=== PATIENT | female | born 1960 | race African-American/Black ===

== ENCOUNTER → 2016-06-07 | Outpatient (CLI) | payer MEDICARE, OTHER | LOC: WI 08:16 | PROVIDERS: ATTEND Internal Medicine | DX: M81.0 Age-related osteoporosis without current pathological fracture (principal) | CPT/HCPCS: 77080 ==

== ENCOUNTER → 2016-11-30 | Outpatient (CLI) | payer MEDICARE, OTHER ==
--- NOTE | 2016-11-30 12:51 | XCELERA REPORT ---
[address] [address] Lower Extremity Venous Evaluation Name: GALINDO SAMUEL Age: 56 yrs Gender: Female : 1960 Patient Status: Outpatient Patient Location: Study Date: 11/30/2016 09:02 AM Procedure: Color flow and duplex imaging of the veins of the left lower extremity as well as the right Common Femoral vein. Reason For Study: PAIN Ordering Physician: SON HUDSON Performed By: Claudia Joshi Right Sided Venous Evaluation The right common femoral vein is fully compressible. Spontaneous and phasic flow is present in the right common femoral vein. Left Sided Venous Evaluation Normal vessel filling wall to wall, compression and augmentation as well as Colour flow down to the infrageniculate veins. Interpretation Summary No duplex evidence of DVT or obstruction in the left lower extremity nor in the right Common Femoral vein. : SON HUDSON > Nazario Lofton
== END ==
LOC: SP 08:56
PROVIDERS: ATTEND Internal Medicine
DX: M79.89 Other specified soft tissue disorders (principal); M79.609 Pain in unspecified limb
CPT/HCPCS: 93971

== ENCOUNTER 2017-11-03 19:52 | Emergency (ER) | payer OTHER, MEDICARE ==
[2017-11-03] MEDS ORDERED: KETOROLAC TROMETHAMINE 60 MG/2 ML SDV IM ONE (20:13)
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
[2017-11-03] MEDS ORDERED: KETOROLAC TROMETHAMINE INJ/PF 30 MG/1 ML SDV IV ONE (20:36)
[2017-11-03 20:43] LABS: ABSOLUTE BASOPHILS # (AUTO) 0.1 10^3/uL (0.0-0.2); ABSOLUTE EOSINOPHILS # (AUTO) 0.1 10^3/uL (0.0-0.6); ABSOLUTE LYMPHOCYTES (AUTO) 1.6 10^3/uL (0.5-4.7); ABSOLUTE MONOCYTES (AUTO) 0.6 10^3/uL (0.1-1.4); ABSOLUTE NEUT (AUTO) 8.1 10^3/uL (1.7-8.2); BASOPHILS % (AUTO) 0.5 % (0-2); EOSINOPHILS % (AUTO) 0.7 % (0-6); HEMATOCRIT 38.3 % (36.0-47.0); HEMOGLOBIN 13.2 g/dL (12.0-15.5); LYMPHOCYTES % (AUTO) 15.3 % (13-45); MEAN CORPUSCULAR HEMOGLOBIN 30.5 pg (27.0-33.4); MEAN CORPUSCULAR HGB CONC 34.4 g/dL (32.0-36.0); MEAN CORPUSCULAR VOLUME 89 fl (80-97); MONOCYTES % (AUTO) 5.5 % (3-13); PLATELET COUNT 300 10^3/uL (150-450); RED BLOOD COUNT 4.31 10^6/uL (3.72-5.28); RED CELL DISTRIBUTION WIDTH 13.9 % (11.5-14.0); TOTAL CELLS COUNTED % (AUTO) 100 %; WHITE BLOOD COUNT 10.5 10^3/uL (4.0-10.5)
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
[2017-11-03 21:48] LABS: ALANINE AMINOTRANSFERASE 28 U/L (9-52); ALBUMIN 4.9 g/dL (3.5-5.0); ALKALINE PHOSPHATASE 97 U/L (38-126); ANION GAP 16 (5-19); ASPARTATE AMINO TRANSFERASE 20 U/L (14-36); BILIRUBIN,DIRECT 0.2 mg/dL (0.0-0.4); BLOOD UREA NITROGEN 12 mg/dL (7-20); CALCIUM 10.9 mg/dL (8.4-10.2); CARBON DIOXIDE 25 mmol/L (22-30); CHLORIDE 104 mmol/L (98-107); GLUCOSE 211 mg/dL (75-110); POTASSIUM 3.4 mmol/L (3.6-5.0); SODIUM 144.9 mmol/L (137-145); TOTAL PROTEIN 8.4 g/dL (6.3-8.2)
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
[2017-11-03] MEDS ORDERED: HYDROCODONE/ACETAMINOPHEN 5-325 MG (6 TAB/ER DISP) PO PRN (23:44)
[2017-11-03] MEDS ORDERED: METHOCARBAMOL 500 MG TABLET PO ONE (23:44)
[2017-11-04 03:51] VITALS: BP 122/68
== END 2017-11-04 00:20 | disposition home or self-care (01) ==
LOC: ER 19:52
DX: M54.2 Cervicalgia (principal); R51 Headache; M54.6 Pain in thoracic spine; R07.9 Chest pain, unspecified; V87.7XXA Person injured in collision between other specified motor vehicles (traffic), initial encounter; I10 Essential (primary) hypertension; I25.10 Atherosclerotic heart disease of native coronary artery without angina pectoris; E11.9 Type 2 diabetes mellitus without complications
CPT/HCPCS: 99284; 96374; 36415; 85025; 80053; 70450; 71260; 72125; 74177; J1885

== ENCOUNTER → 2018-06-07 | Outpatient (CLI) | payer MEDICARE, OTHER ==
--- NOTE | 2018-06-07 10:51 | WOMENS IMAGING REPORT ---
EXAM DESCRIPTION: BONE DENSITY HIP/SPINE COMPLETED DATE/TIME: 06/07/2018 10:30 am REASON FOR STUDY: M81.0 AGE-RELATED OSTEOPOROSIS W/O CURRENT PATHOLOGICAL FRACTURE M81.0 AGE-RELATE D OSTEOPOROSIS W/O CURRENT PATHOLOGICAL FRAC COMPARISON: 06/07/2016 TECHNIQUE: Dual-Energy X-ray Absorptiometry (DEXA) of the AP Spine and Hip. LIMITATIONS: None. FINDINGS: LUMBAR SPINE: The bone mineral density (BMD) measured from L1-L4 in the AP projection correlates with a T-score of -1.4, previously -1.7, which is osteopenia as defined by the World Health Organization. HIP: The bone mineral density (BMD) measured in the left hip correlates with a T-score of -2.6, unchanged, which is osteoporosis as defined by the World Health Organization. IMPRESSION: 1. LUMBAR SPINE: OSTEOPENIA. 2. HIP: OSTEOPOROSIS. COMMENT: The World Health Organization defines low BMD as follows: T-score: Normal: Greater than -1.0 Osteopenia: Between -1.0 and -2.5 Osteoporosis: Less than -2.5 without fractures Established osteoporosis: Less than -2.5 with fractures In general, you may wish to consider: Diagnosis Treatment Follow-up DEXA Normal BMD Prevention 2-3 years Osteopenia Prevention/Therapy 1-2 years Osteoporosis Therapy Yearly TECHNICAL DOCUMENTATION: JOB ID: [id number]- All Rights Reserved Reading location - IP/workstation name: [email or web address]
== END ==
LOC: WI 09:56
PROVIDERS: ATTEND Internal Medicine
DX: M81.0 Age-related osteoporosis without current pathological fracture (principal)
CPT/HCPCS: 77080

== ENCOUNTER 2018-11-27 12:19 | Emergency (ER) | payer MEDICARE, OTHER ==
--- NOTE | 2018-11-27 12:56 | ER Document Report ---
ED Medical Screen (RME) - General Chief Complaint: Skin Problem Stated Complaint: POSSIBLE ABCESS ON BACK OF NECK Time Seen by Provider: 11/27/18 12:52 Primary Care Provider: SON HUDSON MD [Primary Care Provider] - Follow up as needed Mode of Arrival: Ambulatory Information source: Patient Notes: 58-year-old female presents emergency department with complaints of swelling to the back of her neck. Patient thought it was an abscess. Reports started swelling after she came in from the outside. No abscess appreciated. Patient is a history of breast cancer survivor with double mastectomy. No other symptoms such as fever vomiting diarrhea. I have greeted and performed a rapid initial assessment of this patient. A comprehensive ED assessment and evaluation of the patient, analysis of test results and completion of the medical decision making process will be conducted by additional ED providers. Dictation of this chart was performed using voice recognition software; therefore, there may be some unintended grammatical errors. TRAVEL OUTSIDE OF THE [place] IN LAST 30 DAYS: No - Related Data Allergies/Adverse Reactions: No Known Allergies Allergy (Verified 11/27/18 12:51) Past Medical History - Social History Chew tobacco use (# tins/day): No Frequency of alcohol use: None Drug Abuse: None - Past Medical History Cardiac Medical History: Reports: Hx Hypercholesterolemia, Hx Hypertension Denies: Hx Atrial Fibrillation, Hx Congestive Heart Failure, Hx Coronary Artery Disease, Hx Heart Attack, Hx Heart Murmur Pulmonary Medical History: Denies: Hx Asthma, Hx Bronchitis, Hx COPD, Hx Pneumonia, Hx Respiratory Failure, Hx Sleep Apnea, Hx Tuberculosis Neurological Medical History: Denies: Hx Cerebrovascular Accident, Hx Seizures, Hx Parkinson's Disease Endocrine Medical History: Reports: Hx Diabetes Mellitus Type 2 - Borderline Renal/ Medical History: Denies: Hx End Stage Renal Disease, Hx Kidney Stones, Hx Peritoneal Dialysis Malignancy Medical History: Reports: Hx Breast Cancer - RIGHT mastectomy 12/01/10 GI Medical History: Denies: Hx Gastroesophageal Reflux Disease, Hx Hiatal Hernia, Hx Pancreatitis, Hx Ulcer Musculoskeltal Medical History: Denies Hx Arthritis, Denies Hx Systemic Lupus Erythematosus Psychiatric Medical History: Denies: Hx Bipolar Disorder, Hx Depression, Hx Schizophrenia Infectious Medical History: Past Surgical History: Reports: Hx Breast Surgery, Hx Mastectomy - bilat, Hx Tonsillectomy, Hx Tubal Ligation. Denies: Hx Appendectomy, Hx Bowel Surgery, Hx Section, Hx Cholecystectomy, Hx Hysterectomy - Immunizations Hx Diphtheria, Pertussis, Tetanus Vaccination: Yes Physical Exam - Vital signs Vitals: Temp Pulse Resp BP Pulse Ox 97.7 F 62 16 164/81 H 98 11/27/18 12:43 11/27/18 12:43 11/27/18 12:43 11/27/18 12:43 11/27/18 12:43 Course - Vital Signs Vital signs: Temp Pulse Resp BP Pulse Ox 97.7 F 62 16 164/81 H 98 11/27/18 12:43 11/27/18 12:43 11/27/18 12:43 11/27/18 12:43 11/27/18 12:43 Doctor's Discharge - Discharge Referrals: SON HUDSON MD [Primary Care Provider] - Follow up as needed
--- NOTE | 2018-11-27 14:19 | RADIOLOGY REPORT (SQ) ---
EXAM DESCRIPTION: U/S THYROID/SFT TISS HD NECK COMPLETED DATE/TIME: 11/27/2018 1:57 pm REASON FOR STUDY: Swelling back of neck COMPARISON: None. TECHNIQUE: Dynamic and static keene-scale images acquired of the palpable area in the left posterior aspect of the neck; images of the contralateral side were also acquired for comparison. Selected filemon tional color/power Doppler images recorded. All images stored to PACS. LIMITATIONS: None. FINDINGS: For the travel manager no the patient has been complaining of swelling to the back of the nec k for 1 day. The palpable area of abnormality in the posterolateral aspect of the neck, on the left side, was evaluated with ultrasound and no discrete abscess, mass or enlarged lymph node was identifi ed. IMPRESSION: No mass, abscess or enlarged lymph node at the site of the palpable abnormality. TECHNICAL DOCUMENTATION: JOB ID: [id number] [employer] [place]- All Rights Reserved Reading location - IP/workstation name: [email or web address]
--- NOTE | 2018-11-27 14:32 | ER Document Report ---
HPI - HPI Patient complains to provider of: lump on back of neck Time Seen by Provider: 11/27/18 12:52 Pain Level: 3 Context: 58-year-old female with history of breast cancer status post double mastectomy presents to the emergency department with chief complaint of a swollen area on the back of her neck on the left side. She said it happened yesterday when she was working outside and felt some pain in realized that there was swelling. She is unclear if this is a swollen lymph node and she is concerned because of her history of cancer. She denies any fevers or night sweats, denies any nausea or vomiting, denies any acute weakness, denies any neck stiffness, denies any chest pain or shortness of breath. - REPRODUCTIVE Reproductive: DENIES: : Past Medical History - General Information source: Patient - Social History Smoking Status: Never Smoker Chew tobacco use (# tins/day): No Frequency of alcohol use: None Drug Abuse: None Family History: Reviewed & Not Pertinent Patient has suicidal ideation: No Patient has homicidal ideation: No - Past Medical History Cardiac Medical History: Reports: Hx Hypercholesterolemia, Hx Hypertension Denies: Hx Atrial Fibrillation, Hx Congestive Heart Failure, Hx Coronary Artery Disease, Hx Heart Attack, Hx Heart Murmur Pulmonary Medical History: Denies: Hx Asthma, Hx Bronchitis, Hx COPD, Hx Pneumonia, Hx Respiratory Failure, Hx Sleep Apnea, Hx Tuberculosis Neurological Medical History: Denies: Hx Cerebrovascular Accident, Hx Seizures, Hx Parkinson's Disease Endocrine Medical History: Reports: Hx Diabetes Mellitus Type 2 - Borderline Renal/ Medical History: Denies: Hx End Stage Renal Disease, Hx Kidney Stones, Hx Peritoneal Dialysis Malignancy Medical History: Reports: Hx Breast Cancer - RIGHT mastectomy 12/01/10 GI Medical History: Denies: Hx Gastroesophageal Reflux Disease, Hx Hiatal Hernia, Hx Pancreatitis, Hx Ulcer Musculoskeletal Medical History: Denies Hx Arthritis, Denies Hx Systemic Lupus Erythematosus Psychiatric Medical History: Denies: Hx Bipolar Disorder, Hx Depression, Hx Schizophrenia Infectious Medical History: Past Surgical History: Reports: Hx Breast Surgery, Hx Mastectomy - bilat, Hx Tonsillectomy, Hx Tubal Ligation. Denies: Hx Appendectomy, Hx Bowel Surgery, Hx Section, Hx Cholecystectomy, Hx Hysterectomy - Immunizations Hx Diphtheria, Pertussis, Tetanus Vaccination: Yes Vertical Provider Document - CONSTITUTIONAL Notes: PHYSICAL EXAMINATION: Reviewed vital signs and charting by RN GENERAL: Alert, interacts well. No acute distress. HEAD: Normocephalic, atraumatic. EYES: Pupils equal and round. Extraocular movements intact. ENT: Oral mucosa moist, tongue midline. NECK: Full range of motion. Trachea midline. There is a raised area on the posterior neck on the left side that is not an abscess and is somewhat mobile. Unclear if it is a cyst versus a lymph node LUNGS: Clear to auscultation bilaterally, no wheezes, rales, or rhonchi. No respiratory distress. HEART: Regular rate and rhythm. No murmur ABDOMEN: soft, non-tender. No distention. Bowel sounds present EXTREMITIES: Moves all 4 extremities spontaneously. No edema, No cyanosis. PSYCH: Normal affect, normal mood. SKIN: Warm, dry, normal turgor. No rashes or lesions noted. - INFECTION CONTROL TRAVEL OUTSIDE OF THE [place] IN LAST 30 DAYS: No Course - Re-evaluation Re-evalutation: 11/27/18 14:30 Well-appearing in no acute distress, no neck stiffness. A ultrasound was done of the neck and did not show any evidence of an infected or inflamed lymph node, abscess, or mass. Patient is reassured that she was concerned because of her history of cancer. I told her she needs to follow-up with her primary doctor in the next 24 to 48 hours and she agrees with plan. She is stable for discharge. - Vital Signs Vital signs: Temp Pulse Resp BP Pulse Ox 97.7 F 62 16 164/81 H 98 11/27/18 12:43 11/27/18 12:43 11/27/18 12:43 11/27/18 12:43 11/27/18 12:43 Discharge - Discharge Clinical Impression: Neck swelling Condition: Good Disposition: HOME, SELF-CARE Additional Instructions: He was seen in the emergency department for swelling on the back of your neck. The ultrasound did not show any evidence of an abscess, mass, or inflamed or infected lymph node. This is all very reassuring. It is unclear why you have the swelling and pain and it could be related to muscle. Regardless, it is important that you follow-up with your primary doctor in the next 24 to 48 hours or whenever he can get an appointment to further look into this. Please return to the emergency department if you pass out, have severe intractable chest pain, acute shortness of breath, or any other concerning symptoms. Referrals: SON HUDSON MD [ACTIVE STAFF] - Follow up as needed
[2018-11-27 14:42] VITALS: BP 178/94
== END 2018-11-27 14:43 | disposition home or self-care (01) ==
LOC: ER 12:19
DX: R22.1 Localized swelling, mass and lump, neck (principal); I10 Essential (primary) hypertension; Z85.3 Personal history of malignant neoplasm of breast
CPT/HCPCS: 76536; 99283

== ENCOUNTER 2019-10-04 17:54 | Emergency (ER) | payer MEDICARE, OTHER ==
[2019-10-04 18:03] VITALS: BP 162/86
--- NOTE | 2019-10-04 18:49 | RADIOLOGY REPORT (SQ) ---
EXAM DESCRIPTION: FOOT LEFT COMPLETE IMAGES COMPLETED DATE/TIME: 10/04/2019 6:37 pm REASON FOR STUDY: Question little toe fracture COMPARISON: None. NUMBER OF VIEWS: Three views. TECHNIQUE: AP, lateral and oblique radiographic images acquired of the left foot. LIMITATIONS: None. FINDINGS: MINERALIZATION: Normal. BONES: Nondisplaced oblique fracture of the 5th proximal phalanx. JOINTS: No effusions. SOFT TISSUES: No soft tissue swelling. No foreign body. OTHER: No other significant finding. IMPRESSION: Fracture of the 5th proximal phalanx. TECHNICAL DOCUMENTATION: JOB ID: [id number] [employer]- All Rights Reserved Reading location - IP/workstation name: [email or web address]
--- NOTE | 2019-10-04 19:08 | ER Document Report ---
ED Extremity Problem, Lower - General Stated Complaint: TOE INJURY Time Seen by Provider: 10/04/19 18:08 Primary Care Provider: TAYLER LARRY MD [Primary Care Provider] - Follow up as needed Mode of Arrival: Ambulatory Information source: Patient Notes: Patient is a 59-year-old female comes emergency room complaining of stubbing her left little toe walking into the bedroom door on Monday this past week. Patient states that she is tried to make it healed but it is continuously hurting. And actually is getting worse. She denies any other injuries. States she was barefoot when the incident occurred and kicked in the middle of the night. TRAVEL OUTSIDE OF THE [place] IN LAST 30 DAYS: No - HPI Patient complains to provider of: Injury, Pain, Swelling Location: 5th Toe Occurred: Other - 2 days Where: Home Onset/Duration: Sudden Quality of pain: Achy Severity: Moderate Pain Level: 3 Context: Direct blow, Stubbed Recent injury: Yes Exacerbated by: Movement, Walking Relieved by: Nothing - Related Data Allergies/Adverse Reactions: No Known Allergies Allergy (Verified 11/27/18 12:51) Past Medical History - General Information source: Patient - Social History Smoking Status: Never Smoker Chew tobacco use (# tins/day): No Smoking Education Provided: No Frequency of alcohol use: None Drug Abuse: None Lives with: Family Family History: Reviewed & Not Pertinent - Past Medical History Cardiac Medical History: Reports: Hx Hypercholesterolemia, Hx Hypertension Denies: Hx Atrial Fibrillation, Hx Congestive Heart Failure, Hx Coronary Artery Disease, Hx Heart Attack, Hx Heart Murmur Pulmonary Medical History: Denies: Hx Asthma, Hx Bronchitis, Hx COPD, Hx Pneumonia, Hx Respiratory Failure, Hx Sleep Apnea, Hx Tuberculosis Neurological Medical History: Denies: Hx Cerebrovascular Accident, Hx Seizures, Hx Parkinson's Disease Endocrine Medical History: Reports: Hx Diabetes Mellitus Type 2 - Borderline Renal/ Medical History: Denies: Hx End Stage Renal Disease, Hx Kidney Stones, Hx Peritoneal Dialysis Malignancy Medical History: Reports: Hx Breast Cancer - RIGHT mastectomy 12/01/10 GI Medical History: Denies: Hx Gastroesophageal Reflux Disease, Hx Hiatal Hernia, Hx Pancreatitis, Hx Ulcer Musculoskeletal Medical History: Denies Hx Arthritis, Denies Hx Systemic Lupus Erythematosus Psychiatric Medical History: Denies: Hx Bipolar Disorder, Hx Depression, Hx Schizophrenia Infectious Medical History: Past Surgical History: Reports: Hx Breast Surgery, Hx Mastectomy - bilat, Hx Tonsillectomy, Hx Tubal Ligation. Denies: Hx Appendectomy, Hx Bowel Surgery, Hx Section, Hx Cholecystectomy, Hx Hysterectomy - Immunizations Hx Diphtheria, Pertussis, Tetanus Vaccination: Yes Review of Systems - Review of Systems Constitutional: No symptoms reported EENT: No symptoms reported Cardiovascular: No symptoms reported Respiratory: No symptoms reported Gastrointestinal: No symptoms reported Genitourinary: No symptoms reported Female Genitourinary: No symptoms reported Musculoskeletal: Joint pain, Joint swelling Skin: No symptoms reported Hematologic/Lymphatic: No symptoms reported Neurological/Psychological: No symptoms reported -: Yes All other systems reviewed and negative Physical Exam - Vital signs Vitals: Temp Pulse Resp BP Pulse Ox 98.8 F 81 18 162/86 H 97 10/04/19 18:02 10/04/19 18:02 10/04/19 18:02 10/04/19 18:02 10/04/19 18:02 Interpretation: Hypertensive - Notes Notes: PHYSICAL EXAMINATION: GENERAL: Well-appearing, well-nourished and in no acute distress. LUNGS: Breath sounds clear to auscultation bilaterally and equal. No wheezes rales or rhonchi. HEART: Regular rate and rhythm without murmurs Female : deferred Musculoskeletal: Examination patient's area concern is her left little toe and f oot area. Patient has tenderness along the left little toe at the distal end of the metatarsals and the proximal phalanx. This is all of the fifth digit of the left little toe. There is some mild swelling more towards the first phalanx. Decreased range of motion with flexion extension of that toe. Moderate tenderness to palpation is also noted. No erythema is seen at this time. No discoloration is seen at this time. Patient displays good cap refill in nailbeds of the little toe on the left foot as she does all other toes on that foot. NEUROLOGICAL: Normal speech, normal gait. Normal sensory, motor exams PSYCH: Normal mood, normal affect. SKIN: Warm, Dry, normal turgor, no rashes or lesions noted. Course - Re-evaluation Re-evalutation: 10/04/19 19:12 Patient's x-ray showed a fracture at the proximal phalanx of the left fifth digit. Was approximately midshaft. - Vital Signs Vital signs: Temp Pulse Resp BP Pulse Ox 98.8 F 81 18 162/86 H 97 10/04/19 18:02 10/04/19 18:02 10/04/19 18:02 10/04/19 18:02 10/04/19 18:02 Procedures - Immobilization Left Lateral Toe 5th digit Pre-Proc Neuro Vasc Exam: Normal Immobilizer type: Post-op shoe Performed by: PCT Post-Proc Neuro Vasc Exam: Normal Alignment checked and good: Yes Discharge - Discharge Clinical Impression: Fracture of phalanx of left foot, closed Qualifiers: Encounter type: initial encounter Toe: lesser toe Phalanx: proximal Fracture alignment: nondisplaced Qualified Code(s): S92.515A - Nondisplaced fracture of proximal phalanx of left lesser toe(s), initial encounter for closed fracture Disposition: HOME, SELF-CARE Instructions: Fractured Toe ([facility]) Additional Instructions: Nonweightbearing until seen by orthopedist. I am giving the name the orthopedic doctor naturalization examiner you contact his office to see if he can accommodate you. You can ice the area 2-3 times a day for approximately 5 minutes. Ibuprofen or Tylenol for pain and discomfort. Use the shoe when up and ambulatory to stop you from hitting the toe again. Should you have any concerns or problems return to ER for reevaluation. Referrals: TAYLER LARRY MD [Primary Care Provider] - Follow up as needed MARLENE RAMOS MD [ACTIVE STAFF] - Follow up as needed
== END 2019-10-04 19:15 | disposition home or self-care (01) ==
LOC: ER 17:54
DX: S92.515A Nondisplaced fracture of proximal phalanx of left lesser toe(s), initial encounter for closed fracture (principal); W22.8XXA Striking against or struck by other objects, initial encounter; Y92.009 Unspecified place in unspecified non-institutional (private) residence as the place of occurrence of the external cause; I10 Essential (primary) hypertension
CPT/HCPCS: 99283